=== PATIENT | male | born 1995 | race Caucasian/White ===

== ENCOUNTER 2021-03-25 00:26 | Emergency (ER) | payer OTHER ==
[2021-03-25] MEDS ORDERED: ONDANSETRON 4 MG/2 ML VIAL ONE (00:45)
[2021-03-25] MEDS ORDERED: NA CHLORIDE 0.9% 1,000 ML ONE (00:45)
[2021-03-25 00:48] LABS: Absolute Lymphocytes (CBC) 3.8 K/uL (0.7-4.9); Lymphocytes % 45.6 % (15.3-44.8); RBC Red Blood Cell Count 4.61 M/uL (4.33-5.43)
[2021-03-25 00:56] LABS: Protime INR 1.02
[2021-03-25 01:11] LABS: ALT/SGPT 70 U/L (12-78); AST/SGOT 30 U/L (15-37); Albumin 3.9 g/dL (3.4-5.0); Alkaline Phosphatase 66 U/L (45-117); BUN Blood Urea Nitrogen 11 mg/dL (7-18); Bicarbonate 21 mmol/L (21-32); Bilirubin Direct < 0.1 mg/dL (0-0.2); Bilirubin Total 0.3 mg/dL (0.2-1.0); Glucose Level 124 mg/dL (74-106); Potassium 3.5 mmol/L (3.5-5.1); Protein, Total 7.8 g/dL (6.4-8.2); Sodium Level 141 mmol/L (136-145)
--- NOTE | 2021-03-25 03:36 | ER ---
Nurse's Notes [facility] Name: Ronny Griffith Age: 25 yrs Sex: Male : 1995 Arrival Date: 03/25/2021 Time: 00:33 Bed 7 Private MD: Diagnosis: Presentation: 03/25 00:33 Chief complaint: EMS states: called out for intoxication, on arrival to ER pt was as6 vomiting and minimally responsive to painful stimuli. Coronavirus screen: At this time, unable to obtain information related to travel outside the [place] Ebola Screen: Unable to complete the Ebola screening because: Patient is unresponsive. Initial Sepsis Screen: Does the patient meet any 2 criteria? No. Patient's initial sepsis screen is negative. Does the patient have a suspected source of infection? No. Patient's initial sepsis screen is negative. Risk Assessment: Do you want to hurt yourself or someone else? Unable to obtain. Onset of symptoms is unknown. 00:33 Method Of Arrival: EMS: [facility] as6 00:33 Acuity: LALO 2 as6 Triage Assessment: 01:00 General: Behavior is drowsy. as6 Historical: - Allergies: 00:41 Unable to obtain; bb - Home Meds: 00:41 Unable to obtain [Active]; bb - PMHx: 00:41 Unable to Obtain; bb - Immunization history:: Adult Immunizations unknown. - Social history:: Smoking status: unknown Patient uses alcohol, patient/guardian reports recent binge of alcohol consumption. Screenin:47 Abuse screen:. Nutritional screening: No deficits noted. Tuberculosis screening: No as6 symptoms or risk factors identified. Fall Risk IV access (20 points). Gait- Impaired (20 pts.). Total Amezquita Fall Scale indicates Low Risk Score (25-44 pts). Side Rails Up X 2 Frequent Obs/Assesments occuring. Assessment: 00:30 General: Appears in no apparent distress. Smells of alcohol. General: pt snoring, as6 attempted to insert NPA, pt aroused and swatted NPA away . Pain: Unable to use pain scale. Patient is unresponsive. Neuro: Level of Consciousness is obtunded, Oriented to pt not able to respond . Cardiovascular: Capillary refill < 3 seconds Patient's skin is warm and dry. Respiratory:. 02:02 Reassessment: Patient appears in no apparent distress at this time. No changes from as6 previously documented assessment. 03:33 General: pt awake, ambulated to chair and urinated on floor, pt put clothes on and as6 voiced wanting to leave. provider notified. pt was able to answer questions appropriately and had a even and steady gait. pt removed his IV and ambulated to ER exit . Vital Signs: 00:33 BP 111 / 61; Pulse 70; Resp 14 S; Temp 96.9; Pulse Ox 90% ; Weight 127.01 kg; Height 6 as6 ft. (182.88 cm); 01:05 BP 92 / 64; Pulse 80; Resp 14 S; Pulse Ox 98% on 2 lpm NC; as6 02:02 BP 110 / 66; Pulse 88; Resp 16 S; Pulse Ox 99% on 3 lpm NC; as6 03:00 BP 112 / 85; Pulse 96; Resp 18 S; Pulse Ox 99% on R/A; as6 00:33 Body Mass Index 37.97 (127.01 kg, 182.88 cm) as6 [place] Coma Score: 01:05 Eye Response: to pain(2). Verbal Response: none(1). Motor Response: localizes pain(5). as6 Total: 8. ED Course: 00:30 Inserted saline lock: 20 gauge in right antecubital area, using aseptic technique. as6 Blood collected. 00:33 Patient arrived in ED. as6 00:33 Chidi Ochoa MD is Attending Physician. 7 00:39 Triage completed. as6 00:41 Mars Sal RN is Primary Nurse. as6 00:42 Arm band placed on Patient placed in an exam room, on a stretcher, on oxygen, on pulse bb oximetry. 00:48 Bed in low position. Call light in reach. Side rails up X2. Pulse ox on. NIBP on. as6 01:40 Chest Single View XRAY In Process Unspecified. EDMS 03:35 No provider procedures requiring assistance completed. IV discontinued. as6 Administered Medications: 00:47 Drug: Zofran (Ondansetron) 4 mg Route: IVP; Site: right antecubital; as6 02:03 Follow up: Response: No adverse reaction as6 00:47 Drug: NS 0.9% 1000 ml Route: IV; Rate: 1000 ml; Site: right antecubital; as6 02:03 Follow up: Response: No adverse reaction; IV Status: Completed infusion; IV Intake: as6 1000ml Intake: 02:03 IV: 1000ml; Total: 1000ml. as6 Outcome: 03:35 Eloped after seeing physician as6 03:35 Condition: stable 03:36 Patient left the ED. as6 Signatures: Dispatcher [employer] EDMichaela Ortiz RN RN bb Chidi Ochoa MD MD 7 Mars Sal RN RN as6
--- NOTE | 2021-03-25 03:36 | EDPHYS ---
Physician Documentation [facility] Name: Ronny Griffith Age: 25 yrs Sex: Male : 1995 Arrival Date: 03/25/2021 Time: 00:33 Bed 7 Private MD: ED Physician Chidi Ochoa HPI: 03/25 01:01 This 25 yrs old Male presents to ER via EMS with complaints of Alcohol intoxication. mh7 01:01 The patient presents to the emergency department. mh7 01:02 The patient presents with decreased mental status. Onset: The symptoms/episode mh7 began/occurred today. Possible causes: alcohol, Drinking at a bar. Associated signs and symptoms: Pertinent positives: vomiting. Current symptoms: In the emergency department the patient's symptoms are unchanged from the initial presentation. Patient's baseline: Unknown. Unable to obtain HPI due to altered mental status. According to EMS, patient was at a bar and was noted to have multiple alcoholic drinks. He was intoxicated so the curator herbarium placed him in an Uber. He had an episode of vomiting and the milk driver called EMS who brought him to the ED. Patient sleeping on arrival but responsive to tactile stimuli by opening eyes and moving all extremities.. Historical: - Allergies: 00:41 Unable to obtain; bb - Home Meds: 00:41 Unable to obtain [Active]; bb - PMHx: 00:41 Unable to Obtain; bb - Immunization history:: Adult Immunizations unknown. - Social history:: Smoking status: unknown Patient uses alcohol, patient/guardian reports recent binge of alcohol consumption. ROS: 01:02 Unable to obtain ROS due to altered mental status. mh7 Exam: 01:02 Head/Face: Normocephalic, atraumatic. Eyes: Pupils equal round and reactive to light, mh7 extra-ocular motions intact. Lids and lashes normal. Conjunctiva and sclera are non-icteric and not injected. Cornea within normal limits. Periorbital areas with no swelling, redness, or edema. Neck: Trachea midline, no thyromegaly or masses palpated, and no cervical lymphadenopathy. Supple, full range of motion without nuchal rigidity, or vertebral point tenderness. No Meningismus. Chest/axilla: Normal chest wall appearance and motion. Nontender with no deformity. No lesions are appreciated. Cardiovascular: Regular rate and rhythm with a normal S1 and S2. No gallops, murmurs, or rubs. Normal PMI, no JVD. No pulse deficits. Respiratory: Lungs have equal breath sounds bilaterally, clear to auscultation and percussion. No rales, rhonchi or wheezes noted. No increased work of breathing, no retractions or nasal flaring. Abdomen/GI: Soft, non-tender, with normal bowel sounds. No distension or tympany. No guarding or rebound. No evidence of tenderness throughout. Back: No spinal tenderness. No costovertebral tenderness. Full range of motion. MS/ Extremity: Pulses equal, no cyanosis. Neurovascular intact. Full, normal range of motion. 01:02 Constitutional: The patient appears smells of alcohol, ETOH, Sleeping but arousable to tactile stimuli 01:02 Neuro: Orientation: unable to test, the patient is clinically intoxicated, Mentation: unable to test, the patient is clinically intoxicated, Memory: unable to test, the patient is clinically intoxicated, Cranial nerves: unable to test, the patient is clinically intoxicated, Cerebellar function: unable to test, the patient is clinically intoxicated, Motor: moves all fours, Sensation: no obvious gross deficits, Gait: not tested. seizure activity, is not displayed by the patient, Abnormal movements: there are no abnormal movements. Vital Signs: 00:33 BP 111 / 61; Pulse 70; Resp 14 S; Temp 96.9; Pulse Ox 90% ; Weight 127.01 kg; Height 6 as6 ft. (182.88 cm); 01:05 BP 92 / 64; Pulse 80; Resp 14 S; Pulse Ox 98% on 2 lpm NC; as6 02:02 BP 110 / 66; Pulse 88; Resp 16 S; Pulse Ox 99% on 3 lpm NC; as6 03:00 BP 112 / 85; Pulse 96; Resp 18 S; Pulse Ox 99% on R/A; as6 00:33 Body Mass Index 37.97 (127.01 kg, 182.88 cm) as6 [place] Coma Score: 01:05 Eye Response: to pain(2). Verbal Response: none(1). Motor Response: localizes pain(5). as6 Total: 8. MDM: 03:05 Differential Diagnosis: alcohol intoxication, hypoglycemia, overdose, volume depletion. 7 Data reviewed: vital signs, nurses notes, EMS record, lab test result(s), CBC, drug level(s), acetaminophen, alcohol, salicylate, electrolytes. Data interpreted: Pulse oximetry: on room air is 99 %. Interpretation: normal. ED course: Well-appearing, no acute distress, vital signs stable, no focal neurological deficits. Patient awake, alert, oriented x4. Appropriate with answering questions and sitting up on side of stretcher.. 05:28 ED course: Alerted by nursing staff that patient eloped from the ED.. 05:29 Patient medically screened. [facility] 03/25 00:33 Order name: Acetaminophen [facility] 03/25 00:33 Order name: Basic Metabolic Panel; Complete Time: 01:18 [facility] 03/25 00:33 Order name: CBC with Diff; Complete Time: 00:58 [facility] 03/25 00:33 Order name: ETOH Level; Complete Time: 01:18 [facility] 03/25 00:33 Order name: Hepatic Function; Complete Time: 01:18 [facility] 03/25 00:33 Order name: PT-INR; Complete Time: 00:58 [facility] 03/25 00:33 Order name: Ptt, Activated; Complete Time: 00:58 [facility] 03/25 00:33 Order name: Salicylate; Complete Time: 01:18 [facility] 03/25 00:33 Order name: EKG; Complete Time: 00:34 [facility] 03/25 00:34 Order name: Acetaminophen Level; Complete Time: 01:18 [facility] 03/25 00:34 Order name: Chest Single View XRAY; Complete Time: 19:23 [facility] 03/25 00:33 Order name: EKG - Nurse/Tech; Complete Time: 00:57 [facility] 03/25 00:33 Order name: IV Saline Lock; Complete Time: 00:42 03/25 00:33 Order name: Labs collected and sent; Complete Time: 00:42 [facility] Administered Medications: 00:47 Drug: Zofran (Ondansetron) 4 mg Route: IVP; Site: right antecubital; as6 02:03 Follow up: Response: No adverse reaction as6 00:47 Drug: NS 0.9% 1000 ml Route: IV; Rate: 1000 ml; Site: right antecubital; as6 02:03 Follow up: Response: No adverse reaction; IV Status: Completed infusion; IV Intake: as6 1000ml Disposition Summary: 03/25/21 03:36 Eloped Disposition: after being seen by provider as6 Reason: needs outpatient procedure as6 Signatures: Dispatcher [employer] Michaela Nielsen RN RN Chidi Burton MD MD mh7 Mars Sal RN RN as6 Corrections: (The following items were deleted from the chart) 00:57 00:33 Suicide Screening ([place]) ordered. [facility] as6
[2021-03-25 03:40] VITALS: TEMP 96.9
[2021-03-25 03:43] VITALS: O2SAT 99
[2021-03-25 03:44] VITALS: BP 112/85
--- NOTE | 2021-03-25 08:11 | RAD REPORT ---
EXAM DESCRIPTION: RAD - Chest Single View - 03/25/2021 1:40 am CLINICAL HISTORY: CONGESTIONshortness of breath, altered mental status COMPARISON: None TECHNIQUE: PA portable chest image was obtained 03/25/2021 1:40 am . Imaging is suboptimal. Patient w as unable to cooperate with the examination. FINDINGS: Lung volumes are low. Significant overlying soft tissue artifacts are present. An acute ata ng parenchymal process is not suspected. Significant failure or volume overload also not suspected. R epeat imaging can be performed once the patient is able to better cooperate with the examination. Hea rt and vasculature are normal. No measurable pleural effusion and no pneumothorax. No acute bony abno rmality seen. No acute aortic findings suspected. IMPRESSION: Very limited portable examination without acute cardiopulmonary finding. Repeat imaging can be performed once the patient is better able to cooperate with the examination.
== END 2021-03-25 03:36 | disposition left against medical advice (07) ==
LOC: ER 00:26
DX: R41.82 Altered mental status, unspecified (principal); R11.10 Vomiting, unspecified; Z72.89 Other problems related to lifestyle
CPT/HCPCS: 96361; 93005; 85025; 80048; 36415; 80320; 80329 ×2; 85610; 80076; 85730; 71045; 96374; 99284; J7030; J2405